=== PATIENT | female | born 1970 | race Caucasian/White ===

== ENCOUNTER 2016-07-18 19:37 | Emergency (ER) | payer BC, OTHER ==
[2016-07-18] MEDS ORDERED: oxyCODONE/ACET 5/325 Prepack 4 PO STA (19:50)
[2016-07-18] MEDS ORDERED: CLINDAMYCIN 150 MG CAPSULE PO STA (19:50)
[2016-07-18] MEDS ORDERED: CLINDAMYCIN 150 MG CAPSULE PO ONE (20:00)
[2016-07-18] MEDS ORDERED: oxyCODONE/ACET 5/325 Prepack 4 PO ONE (20:01)
== END 2016-07-18 20:10 | disposition home or self-care (01) ==
DX: K02.9 Dental caries, unspecified (principal)
CPT/HCPCS: 99282; 99284; A9270

== ENCOUNTER 2018-04-25 14:20 | Outpatient (CLI) | payer OTHER ==
--- NOTE | 2018-04-26 05:33 | XRAY Report ---
Reason: PERSISTENT COUGH X 2 MO Procedure Date: 04/25/2018 Accession Number: [id number] / [id number] Procedure: XR - Chest 2 View X-Ray CPT Code: 56947 FULL RESULT: EXAM: CHEST RADIOGRAPHY EXAM DATE: 04/25/2018 02:39 PM. CLINICAL HISTORY: Persistent cough x 2 months. COMPARISON: None. TECHNIQUE: 2 views. FINDINGS: Lungs/Pleura: No focal opacities evident. No pleural effusion. No pneumothorax. Normal volumes. Mediastinum: Heart and mediastinal contours are unremarkable. Other: None. IMPRESSION: Normal 2-view chest radiography. RADIA
== END 2018-04-25 14:21 | disposition home or self-care (01) ==
LOC: DI 14:20
PROVIDERS: ATTEND Physician Assistant Medical
DX: R05 Cough (principal)
CPT/HCPCS: 71046

== ENCOUNTER 2018-10-11 14:36 | Emergency (ER) | payer OTHER ==
--- NOTE | 2018-10-11 14:52 | ED Physician Documentation ---
History of Present Illness - Stated complaint Stated Complaint: L LEG PAIN - Chief complaint Chief Complaint: Ext Problem - History obtained from History obtained from: Patient - History of Present Illness Timing: Other (2 to 3 days of swelling and pain of the left calf, not to or above the knee. No recent travel, no injury. No history of DVT or PE. When asked her if she has chest pain or trouble breathing she kind of vacillates and says a little bit and attributes it to her anxiety.) Review of Systems Constitutional: denies: Fever, Chills Cardiac: reports: Palpitations, Pedal edema, Calf pain. denies: Chest pain / pressure Respiratory: reports: Dyspnea (MAYBE, V MILD). 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[employer]: Ovarian cysts - Past Surgical History Past Surgical History: Yes Ortho: Carpal Tunnel surgery /DRAP[employer]: Hysterectomy - Present Medications Home Medications: Ambulatory Orders Medication Instructions Recorded Confirmed Lisinopril/Hydrochlorothiazide 1 tab PO DAILY 07/17/14 07/18/16 [Lisinopril-Hctz 20-25 mg Tab] Cetirizine [ZyrTEC] 10 mg PO ONCE 07/18/16 07/18/16 hydroCHLOROthiazide [Hydrodiuril] 25 mg PO ONCE 07/18/16 07/18/16 - Allergies Allergies/Adverse Reactions: Allergies Allergy/AdvReac Type Severity Reaction Status Date / Time No Known Drug Allergies Allergy Verified 10/11/18 14:43 - Social History Does the pt smoke?: No Smoking Status: Never smoker Does the pt drink ETOH?: Yes Does the pt have substance abuse?: No - Immunizations Immunizations are current?: Yes - POLST Patient has POLST: Yes PD ED PE NORMAL - Vitals Vital signs reviewed: Yes - General General: Alert and oriented X 3, No acute distress - Cardiac Cardiac: RRR, No murmur - Respiratory Respiratory: No respiratory distress, Clear bilaterally - Extremities Extremities: Other (Very mild tenderness of the left calf, none in the popliteal fossa, none above the knee. There is potentially very mild asymmetric swelling but no skin discoloration. Negative Homans sign.) - Neuro Neuro: Alert and oriented X 3, Normal speech Results - Vitals Vitals: Vital Signs - 24 hr 10/11/18 14:40 Temperature 36.8 C Heart Rate 76 Respiratory 17 Rate Blood Pressure 135/71 H O2 Saturation 98 Oxygen O2 Source Room air - Labs Labs: Laboratory Tests 10/11/18 10/11/18 10/11/18 14:50 14:50 14:50 WBC 10.3 RBC 4.83 Hgb 13.6 Hct 40.8 MCV 84.6 MCH 28.1 MCHC 33.2 RDW 15.1 H Plt Count 237 MPV 8.0 Neut # (Auto) 7.5 H Lymph # (Auto) 2.1 [place] # (Auto) 0.4 Eos # (Auto) 0.2 Baso # (Auto) 0.1 Absolute Nucleated RBC 0.01 Nucleated RBC % 0.0 D-Dimer 239.5 Sodium 137 Potassium 3.5 Chloride 99 L Carbon Dioxide 26 Anion Gap 12.0 BUN 11 Creatinine 0.6 Estimated GFR (MDRD) 106 Glucose 117 H Calcium 9.1 Total Bilirubin 0.6 AST 26 ALT 36 Alkaline Phosphatase 58 Total Protein 7.8 Albumin 4.2 Globulin 3.6 Albumin/Globulin Ratio 1.2 Lipase 24 - Rads (name of study) LLE sono Radiology: EMP read contemporaneously (neg) Departure - Departure Disposition: 01 Home, Self Care Clinical Impression: Pain of lower extremity Qualifiers: Laterality: left Qualified Code(s): M79.605 - Pain in left leg Condition: Good Record reviewed to determine appropriate education?: Yes Instructions: ED Strain Muscle Ext Comments: Call your doctor to arrange a follow-up appointment, make the next available appointment. In the interim, return anytime if worse or if new symptoms develop.
[2018-10-11 15:07] LABS: BASOPHILS # (AUTO) 0.1 10^3/uL (0.0-0.1); BASOPHILS % (AUTO) 0.7 %; EOSINOPHILS # (AUTO) 0.2 10^3/uL (0.0-0.7); EOSINOPHILS % (AUTO) 1.8 %; HGB - HEMOGLOBIN 13.6 g/dL (12.0-16.0); LYMPHOCYTES # (AUTO) 2.1 10^3/uL (1.5-3.5); LYMPHOCYTES % (AUTO) 20.2 %; MEAN CORPUSCULAR HEMOGLOBIN 28.1 pg (27.0-31.0); MEAN CORPUSCULAR HGB CONC 33.2 g/dL (32.0-36.0); MEAN CORPUSCULAR VOLUME 84.6 fL (81.0-99.0); MONOCYTES # (AUTO) 0.4 10^3/uL (0.0-1.0); MONOCYTES % (AUTO) 4.3 %; NEUTROPHILS # (AUTO) 7.5 10^3/uL (1.5-6.6); PLT - PLATELET COUNT 237 10^3/uL (130-450); RED BLOOD COUNT 4.83 10^6/uL (4.20-5.40); RED CELL DISTRIBUTION WIDTH 15.1 % (12.0-15.0); WHITE BLOOD COUNT 10.3 x10^3/uL (4.8-10.8)
[2018-10-11 15:20] LABS: ALBUMIN 4.2 g/dL (3.2-5.5); ALBUMIN/GLOBULIN RATIO 1.2 (1.0-2.2); BILIRUBIN,TOTAL 0.6 mg/dL (0.2-1.0); CALCIUM 9.1 mg/dL (8.5-10.3); CREATININE 0.6 mg/dL (0.4-1.0); TOTAL PROTEIN 7.8 g/dL (6.7-8.2)
--- NOTE | 2018-10-11 15:53 | Ultrasound Report ---
Reason: LLE pain/swelling Procedure Date: 10/11/2018 Accession Number: [id number] / [id number] Procedure: US - Duplex Ext Veins Left CPT Code: FULL RESULT: EXAM: LEFT LOWER EXTREMITY VENOUS ULTRASOUND EXAM DATE: 10/11/2018 03:32 PM. CLINICAL HISTORY: Left lower extremity pain and swelling. COMPARISON: None. TECHNIQUE: Real-time sonographic vascular imaging was performed by the law office assistant through the lower extremity utilizing both color-flow and Doppler spectral analysis. Multiple printing supplies sales representative static images were saved for review. FINDINGS: Common Femoral Vein (CFV): Normal. CFV-GSV Junction: Normal. Profunda Femoral Vein (PFV): Normal. Femoral Vein (FV) Prox: Normal. Femoral Vein (FV) Mid: Normal. Femoral Vein (FV) Dist: Normal. Popliteal Vein: Normal. Posterior Tibial Veins: Normal. Peroneal Veins: Normal. Contralateral Side CFV: Normal. Other: None. IMPRESSION: No evidence for left lower extremity deep venous thrombosis. RADIA
[2018-10-11 16:10] VITALS: BP 126/78
== END 2018-10-11 16:09 | disposition home or self-care (01) ==
LOC: ED 14:36
DX: M79.662 Pain in left lower leg (principal); I10 Essential (primary) hypertension
CPT/HCPCS: 36415; 80053; 83690; 85025; 85379; 99282; 99283

== ENCOUNTER 2019-06-05 13:57 | Outpatient (CLI) | payer OTHER ==
[2019-06-08 20:20] VITALS: BP 107/64
--- NOTE | 2019-06-08 20:20 | SLEEP CARE CONSULTATION ---
Information from patient questionnaire entered by Mimi Wesley. I have reviewed and concur with the information entered by Mimi Wesley. This document represents the service I personally performed and the decisions made by me, Milagro Steward MD, [facility]. History of Present Illness Reason for Visit: New patient, Previously diagnosed sleep apnea (AHI 26), sleep apnea on CPAP therapy, Re-establish care Chief Complaint: reports: Insomnia, Unrefreshed sleep, Snoring, Excessive daytime sleepiness, Observed pauses in breathing, Fatigue Duration of Symptoms: 20 years Usual bedtime: 4080-1669 Time it takes to fall asleep: 30 minutes Snores at night: Yes Observed to quit breathing while asleep: Yes Sleeps alone due to snoring: No Number of times waking at night: varies Reasons for waking at night: reports: Bathroom, Other (toss/turn) Toss, Turn, or Twitch while sleeping: Yes Recalls having dreams: Yes (sometimes) Feels refreshed in the morning: No Morning headache: Yes Sleepy or fatigued during the day: Yes Ever fallen asleep while driving: No Takes day naps: No Prior sleep studies: Yes Year and Where: 2007 [facility] Additional HPI information: I have the pleasure of seeing Ms. Blanca today regarding obstructive sleep apnea. As you know, she is a 45 year old lady who complains of insomnia, observed pauses in breathing, unrefreshed sleep, excessive daytime sleepiness, and fatigue. She had a sleep study in 2010 in [place] that showed moderate obstructive sleep apnea. The record is not available. She has been using the CPAP regularly since. She wears a nasal mask and was able to get a new one from [facility] recently. She sleeps and feels better on the treatment. The compliance data show usage in 179 out of the past 180 nights, averaging 7.2 hours a night. The residual AHI is 0.7 and average air leak is 0.1 L/minute. The patient was last seen here in February 2016. His autoCPAP is set at 10 15 cmH2O. She has not gotten any supplies from [employer] for a while. 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 Patient is and lives in [place]. Have you smoked in the past 12 months: No Alcohol use: No Caffeine use: Yes Caffeine amount and frequency: 4 times/week Allergies and Home Medications Allergy and home medication list: Current Medications: 1. Lisinopril-Hydrochlorothiazide 2. Robinson Thyroid, discontinued 3. Zyrtec 4. cannibis Allergies: no known drug allergies Review of Systems Weight loss over past 5 years: 38 Cardiovascular: reports: high blood pressure Respiratory: reports: other Gastrointestinal: denies: heartburn, difficulty swallowing, nausea, vomitting, diarrhea, abdominal pain, other Urinary: denies: incontinence, frequency, urgency, impotence, other Neurological: reports: headaches Psychiatric: reports: Attention Deficit Hyperactivity, anxiety Ear/Nose/Throat: reports: nasal congestion, sinus problems, nose bleeds, dry mouth/throat, hoarseness, other (dentures) Endocrine: reports: sluggishness, too hot or cold Musculoskeletal: reports: joint pain, neck pain, back pain Immunologic: reports: sneezing, rash, itching, allergies to food or environment Physical Exam Vital signs obtained and entered by: Dr. Steward Blood Pressure: 107/64 Cuff size: regular Heart Rate: 68 O2 Saturation: 97 Height: 5 ft 7 in Weight: 255 lb Body Mass Index: 39.9 BMI Classification: Obesity Class 2 Neck circumference: 16.5 Mood/affect: Normal HEENT: No craniofacial malformation Nostrils: patent to airflow Turbinates: normal Septum: midline Mouth and throat: narrow oropharynx Soft palate: long Hard palate: normal Uvula: normal Uvula visualization: 25% Mallampati Class III Tongue: normal in size Tonsils: small Chin and jaw: normal size and position Neck: normal w/o lymphadenopathy or thyromegaly Heart: regular rate and rhythm Lungs: clear bilaterally Abdomen: soft, non-tender Extremities: no edema or clubbing Neurologic: intact, no focal deficits Impression and Plan IMPRESSION: 1. Obstructive Sleep Apnea-Hypopnea Syndrome, moderate, as previously diagnosed. The sleep-disordered breathing most likely have improved with her recent 50-lb weight loss. The patient continues to have had good treatment compliance. The current pressure setting appears effective and comfortable. The patient experiences improvement on the treatment. She is in need of new supplies. I will switch her to a different durable medical supplier. Plan: 1. Prescription made for CPAP supplies, so that she may switch durable medical supplier. 2. Try to lose more weight. 3. Return for follow up in a year or earlier if there is any problem. 4. Repeat in-laboratory polysomnography when she loses more weight. I spent 100% of this visit face to face with the patient with greater than 50% of this was spent time counseling the patient and coordination of care.
== END 2019-06-05 13:58 | disposition home or self-care (01) ==
LOC: SC 13:57
PROVIDERS: ATTEND Internal Medicine Pulmonary Disease
DX: G47.33 Obstructive sleep apnea (adult) (pediatric) (principal); E66.9 Obesity, unspecified; Z68.39 Body mass index [BMI] 39.0-39.9, adult
CPT/HCPCS: 99203; 99212

== ENCOUNTER 2021-11-24 15:35 | Outpatient (CLI) | payer OTHER ==
[2021-12-05 11:14] VITALS: BP 130/80
--- NOTE | 2021-12-05 11:14 | SLEEP CARE CONSULTATION ---
Information from patient questionnaire entered by Vikki Salinas. I have reviewed and concur with the information entered by Vikki Salinas. This document represents the service I personally performed and the decisions made by me, Milagro Steward MD, [facility]. History of Present Illness Service Date and Time: 11/24/2021 1535 Reason for follow up: annual (ANNUAL, LAST SEEN 06/05/19, NEEDS NEW CPAP) Prior sleep studies: Yes Year and Where: 2007 [facility] HPI additional information: Ms. Blanca is a 51-year-old lady who complains of insomnia, observed pauses in breathing, unrefreshed sleep, excessive daytime sleepiness, and fatigue. She had a sleep study in 2010 in [place] that showed moderate obstructive sleep apnea. The record is not available. She has been using the CPAP regularly since. She now uses a DreamStation Go. She did not bring it with her. Her regular machine is a ResMed AirSense 10 which she cannot find anymore. It is over 6 years old now. She has been buying supplies online. She would like a new machine through her insurance [employer]. Sleep Study - Results Prior sleep studies: Yes Year and Where: 2007 [facility] Subjective Initial [place] Sleepiness Scale score: 11 Current [place] Sleepiness Scale score: 12 (11/24/21) Allergies and Home Medications Drug allergies reviewed: Yes Home medication list reviewed: Yes Allergy and home medication list: Allergies No Known Drug Allergies Allergy (Verified 10/11/18 14:43) Review of Systems Review of systems same as previous: Yes Physical Exam Vital signs obtained and entered by: GILL, JEWEL GRINDER Blood Pressure: 130/80 (left arm ) Cuff size: long Heart Rate: 78 O2 Saturation: 96 Height: 5 ft 7 in Weight: 107.048 kg Body Mass Index: 36.9 BMI Classification: Obese Impression and Plan IMPRESSION: 1. Obstructive Sleep Apnea-Hypopnea Syndrome, moderate, as previously diagnosed. Because we do not have her original sleep study and do not have her treatment compliance, a new device cannot be prescribed at this time. I recommend reestablishing the diagnosis with a home sleep apnea test (HSAT). If positive, I can order her a new device. Plan: 1. Order a home sleep apnea test (HSAT) 2. Try to lose more weight. 3. Return for follow up after the test. Follow up with Sleep Care in: 1-2 months Visit Type: In Office Time Spent with Patient (minutes): 20 Provider Statement: I spent 100% of the Face to Face Visit with the patient with greater than 50% spent counseling the patient and coordination of care.
== END 2021-11-24 15:36 | disposition home or self-care (01) ==
LOC: SC 15:35
PROVIDERS: ATTEND Internal Medicine Pulmonary Disease
DX: G47.33 Obstructive sleep apnea (adult) (pediatric) (principal); E66.9 Obesity, unspecified; Z68.36 Body mass index [BMI] 36.0-36.9, adult
CPT/HCPCS: 99212; 99213